=== PATIENT | male | born 1955 | race Caucasian/White ===

== ENCOUNTER → 2016-05-31 | Outpatient (CLI) | payer OTHER ==
[~2016-05-31] MED LIST: REGADENOSON 0.4 MG/5 ML DISP.SYRIN. IV ONE
== END | disposition home or self-care (01) ==
LOC: PCVCIMAG 08:10
PROVIDERS: ATTEND Internal Medicine Cardiovascular Disease
DX: I25.10 Atherosclerotic heart disease of native coronary artery without angina pectoris (principal); R07.9 Chest pain, unspecified; Z95.5 Presence of coronary angioplasty implant and graft
CPT/HCPCS: 78452; 93017; A9500; J2785

== ENCOUNTER → 2018-06-19 | Outpatient (CLI) | payer OTHER ==
--- NOTE | 2018-06-19 17:24 | PCVCIMAG ---
APPROVED REPORT Imaging Protocol: Rest Tc-99m/Stress Tc-99m 1 day Study performed: 06/19/2018 09:18:03 Indication: Chest pain, Dyspnea, Pre-Operative CV evaluation, CAD Patient Location: Out-Patient Stress Nurse: Brianna Hernandez RN, [place] Garland RN PR Tech:HARMONY BinghamMT Ht: 6 ft 3 in Wt: 242 lbs BSA: 2.38 m2 HR: 58 bpm BP: 128/78 mmHg BMI: 30.2 Rhythm: Sinus Bradycardia Medical History Medical History: HTN, Hyperlipidemia, CAD, CVD Medications: Aspirin, Atorvastatin, Zetia, Bystolic, NTG, Oxy Allergies: None relevant to this exam Cardiac Risk Factors: Age Previous Cardiac Procedures: 2009 & 2011 PCI Pretest Chest Pain Characteristics: No chest pain Exercise History: Indeterminate Meds Held (24 hrs): Bystolic Resting Data Rest SPECT myocardial perfusion imaging was performed in supine position 45 minutes following the intravenous injection of 10.4 mCi of Tc-99m Sestamibi. Time of rest injection: 09 Date: 06/19/2018 Administration Route: IV Administration Site: Right AC Pharmacologic Stress Pharmacologic stress test was performed by injecting Regadenoson 0.4 mg IV push over 10-15 seconds immediately followed by the intravenous injection of 33.8 mCi of Tc-99m Sestamibi. Time of stress injection: 1040 Date: 06/19/2018 Administration Route: IV Administration Site: Right AC Gated Stress SPECT was performed 45 minutes after stress injection. The images were gated to evaluate regional wall motion and calculate left ventricular ejection fraction. Stress Test Details Stress Test: Pharmacologic stress testing performed using 0.4 mg of regadenoson per 5 mL given IV over 10 seconds. Reason for pharmacologic stress test: Chronic back pain. HRMax Heart Rate (APMHR): 158 bpm Resting HR: 58 bpmTarget HR (85% APMHR): 134 bpm Max HR Achieved: 81 bpm % of APMHR: 51 Recovery HR: 74 bpm BP Resting BP: 128/78 mmHg Max BP: 131/90 mmHg Recovery BP: 163/86 mmHg ECG Resting ECG: Sinus Bradycardia Stress ECG: Sinus Rhythm Recovery ECG: Sinus Rhythm Clinical Reason for Termination: Completed protocol Stress Symptoms: Momentary dyspnea Exercise duration: 0 min 55 sec Symptoms resolved during recovery. Stress ECG Conclusion ECG: Non-ischemic Study Quality Study: Good Study Data Post stress, the left ventricular ejection was 72%.. SSS: 3 SRS: 3 SDS: 2 TID = 1.14. Perfusion Medium sized area of mild/moderate reversible ischemia involving the mid/basal inferolateral left ventricle consistent with a circumflex distribution. Wall Motion Normal left ventricular size and function with no regional wall motion abnormalities. Nuclear Conclusion Medium sized area of mild/moderate reversible ischemia involving the mid/basal inferolateral left ventricle consistent with a circumflex distribution has developed since May 2016. Normal left ventricular size and function with no regional wall motion abnormalities. Post stress, the left ventricular ejection was 72%. Interpreted by: Adrian Zaidi MD Electronically Approved: 06/19/2018 15:16:16 <Conclusion> ECG: Non-ischemic
== END | disposition home or self-care (01) ==
LOC: PCVCIMAG 08:59
PROVIDERS: ATTEND Internal Medicine Cardiovascular Disease
DX: Z01.810 Encounter for preprocedural cardiovascular examination (principal); I25.10 Atherosclerotic heart disease of native coronary artery without angina pectoris; R06.00 Dyspnea, unspecified; E78.5 Hyperlipidemia, unspecified
CPT/HCPCS: 78452; 93017; A9500; J2785